=== PATIENT | male | born 1985 | race Caucasian/White ===

== ENCOUNTER 2016-04-17 13:33 | Emergency (ER) | payer OTHER ==
[~2016-04-17] VITALS: Ht 182.9 cm; Wt 100.0 kg
[2016-04-17 13:41] VITALS: BP 144/64; PULSE 58; RESP 16; TEMP 98; O2SAT 98
[2016-04-17] MEDS ORDERED: HYDR-3516 PO (13:50)
--- NOTE | 2016-04-17 13:51 | PD ---
HPI . Back pain Chief Complaint: Pain: Acute or Chronic Time Seen by Provider: 13:42 Travel History International Travel<30 days: No Contact w/Intl Traveler<30days: No Traveled to known affect area: No History of Present Illness HPI Patient presents complaining with acute exacerbation of chronic low back pain. He does not have any idea what caused the acute pain. He states he took 2 hydrocodone without relief. He states that he was just sitting in his chair and wouldn't get up when he had the acute pain in his low back. It is right- sided. He does not have any radicular symptoms. He has not had any incontinence. He has not been running a fever. PFSH Past Medical History Diminished Hearing: No Musculoskeletal: Yes (DEGENERATIVE DISC DISEASE) Tetanus Vaccination: Unknown Influenza Vaccination: No Past Surgical History Surgical History: No Previous Surgery Social History Alcohol Use: No Tobacco Use: No Substance Use: No Allergies-Medications (Allergen,Severity, Reaction): Coded Allergies: No Known Allergies (Unverified , 04/17/16) Reported Meds & Prescriptions Reported Meds & Active Scripts Active Reported Meloxicam 7.5 Mg Tab 7.5 Mg PO DAILY Hydrocodone-Acetaminophen 5-325 mg Tab 1 Tab PO TID PRN Review of Systems Except as stated in HPI: all other systems reviewed are Neg General / Constitutional: No: Fever Genitourinary: No: Incontinence Musculoskeletal: Positive: Myalgias Physical Exam Narrative GENERAL: Patient presents by EVAC immobilized with a cervical collar on a long backboard. SKIN: Warm and dry. HEAD: Atraumatic. Normocephalic. EYES: Pupils equal and round. ENT: No nasal bleeding or discharge. Mucous membranes pink and moist. NECK: Trachea midline. Neck is nontender. Full range of motion without pain. CARDIOVASCULAR: Regular rate and rhythm. RESPIRATORY: No accessory muscle use. GASTROINTESTINAL: Abdomen soft, non-tender, nondistended. MUSCULOSKELETAL: No obvious deformities. No edema. No tenderness to percussion along the thoracic, lumbar or sacral spine. NEUROLOGICAL: Awake and alert. No obvious cranial nerve deficits. Motor grossly within normal limits. Normal speech. PSYCHIATRIC: Appropriate mood and affect; insight and judgment normal. Data Data Last Documented VS Vital Signs Date Time Temp Pulse Resp B/P Pulse Ox O2 Delivery O2 Flow Rate FiO2 04/17/16 13:48 57 16 04/17/16 13:41 98.0 144/64 98 Orders Lorazepam Inj (Ativan Inj) (04/17/16 14:15) Ketorolac Inj (Toradol Inj) (04/17/16 14:15) MDM Medical Decision Making Medical Screen Exam Complete: Yes Emergency Medical Condition: Yes Differential Diagnosis Differential diagnosis includes but is not limited to muscular low back pain, DDD, spinal stenosis, epidural abscess, sciatica, kidney infection or stone. Narrative Course This patient presents with acute exacerbation of chronic back pain. The symptoms suggestive of radiculopathy. He has no symptoms suggestive of epidural abscess. 3 PM Patient states that his symptoms have started to improve. He will be discharged. Diagnosis Primary Impression: Low back pain Qualified Code: M54.5 - Acute right-sided low back pain without sciatica Patient Instructions: Back Pain (ED), General Instructions Med/Other Pt SpecificInfo: Prescription(s) given Scripts Cyclobenzaprine (Flexeril)10 Mg Tab10 Mg PO TID #30 TAB Ref 0 Prov:Naomy Lezama MD 04/17/16 Naomy Lezama MD Apr 17, 2016 13:51
[2016-04-17] MEDS ORDERED: LORazepam 2 MG/ML VIAL IM ONE (14:15)
[2016-04-17] MEDS ORDERED: KETOROLAC TROMETHAMINE 60 MG/2 ML (IM) VIAL IM ONE (14:15)
[2016-04-17] MEDS ORDERED: MELO7.5T4 PO (14:16)
[2016-04-17] MEDS ORDERED: CYCL1TAB29 PO (15:00)
[2016-04-17 15:31] VITALS: RESP 14
== END 2016-04-17 15:41 | disposition home or self-care (01) ==
LOC: NEPA 13:33
DX: M54.5 Low back pain (principal); G89.29 Other chronic pain
CPT/HCPCS: 96372; 99283; J1885; J2060